=== PATIENT | male | born 1980 | race Caucasian/White ===

== ENCOUNTER 2016-11-16 02:15 | Emergency (ER) | payer SELFPAY ==
[2016-11-16] MEDS ORDERED: Cephalexin 500 MG CAP ONE (02:49)
[2016-11-16] MEDS ORDERED: Naproxen 500 MG TAB ONE (02:49)
[2016-11-16] MEDS ORDERED: Sulfameth/Trimethoprim DS 800-160mg TAB ONE (02:49)
[2016-11-16] MEDS ORDERED: predniSONE 20 MG TAB ONE (02:54)
== END 2016-11-16 02:58 | disposition home or self-care (01) ==
LOC: MADERS 02:15
DX: S50.862A Insect bite (nonvenomous) of left forearm, initial encounter (principal); L08.9 Local infection of the skin and subcutaneous tissue, unspecified; I10 Essential (primary) hypertension; F17.210 Nicotine dependence, cigarettes, uncomplicated; W57.XXXA Bitten or stung by nonvenomous insect and other nonvenomous arthropods, initial encounter
CPT/HCPCS: 99282; J7506